=== PATIENT | male | born 2000 | race Caucasian/White ===

== ENCOUNTER 2024-04-20 16:00 | Emergency (ER) | payer BC ==
[~2024-04-20] VITALS: Ht 167.6 cm; Wt 86.8 kg
[2024-04-20 16:07] VITALS: BP 130/71; PULSE 74; RESP 18; TEMP 98.2; O2SAT 97
[2024-04-20 17:01] LABS: APPEARANCE,URINE CLEAR (CLEAR); BILIRUBIN,URINE NEGATIVE (NEGATIVE); BLOOD, URINE NEGATIVE (NEGATIVE); COLOR,URINE YELLOW (YELLOW); LEUKOCYTE ESTERASE ,URINE NEGATIVE (NEGATIVE); NITRITE, URINE NEGATIVE (NEGATIVE); PROTEIN,URINE NEGATIVE (NEGATIVE); UGLUCOSE NEGATIVE (NEGATIVE); UROBILINOGEN,URINE 0.2 EU/dL (0.2 - 1)
[2024-04-20] MEDS ORDERED: NAPR-337 PO ×2 (18:18→19:06)
[2024-04-20 18:27] VITALS: BP 122/72; PULSE 69; RESP 16; TEMP 98; O2SAT 98
== END 2024-04-20 18:27 | disposition home or self-care (01) ==
LOC: MED 16:00
DX: N20.0 Calculus of kidney (principal); N43.3 Hydrocele, unspecified; Z79.899 Other long term (current) drug therapy
CPT/HCPCS: 76770; 76870; 81003; 87491; 99284; Q0092